=== PATIENT | male | born 1970 | race Caucasian/White ===

== ENCOUNTER → 2017-05-30 | Outpatient (CLI) | payer BC, OTHER ==
[~2017-05-30] MED LIST: ALBUTEROL17 GM INH; CELEBREX100 MG PO; ETODOLAC500 MG PO; FLEXERIL10 MG PO; KLONOPIN0.5 MG PO; LAMOTRIGINE ER100 MG PO; LISINOPRIL; LORTAB 7.5-5001 TAB; MORPHINE SULFAT60 MG PO; NORCO 10/3251 TAB PO; PERCOCET 5-3251 TAB PO; VALSARTAN-HCTZ1 EAC2 PO; VALSARTAN-HCTZ1 EACH PO
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
== END | disposition home or self-care (01) ==
LOC: CCAT 11:07
DX: M47.26 Other spondylosis with radiculopathy, lumbar region (principal)
CPT/HCPCS: 72131